=== PATIENT | male | born 1950 | race Caucasian/White ===

== ENCOUNTER → 2018-03-31 | Day surgery (SDC) | payer BC ==
[2018-03-30 13:35] LABS: BASOPHILS % 0.2 % (0.0-1.0); EOSINOPHILS # (AUTO) 0.3 (0.0-0.4); HEMATOCRIT 44.6 % (38.2-49.6); LYMPHOCYTES # (AUTO) 2.6 (1.0-3.2); LYMPHOCYTES % 28.7 % (18.0-39.1); MEAN CORPUSCULAR HEMOGLOBIN 32.8 pg (28-32); MEAN CORPUSCULAR HGB CONC 33.6 g/dL (31-35); MEAN CORPUSCULAR VOLUME 97.6 fL (81-99); MONOCYTES # (AUTO) 0.7 (0.2-0.8); NEUTROPHILS # (AUTO) 5.4 (2.1-6.9); NEUTROPHILS % 59.2 % (38.7-80.0); PLATELET COUNT 200 x10e3/uL (140-360); RED BLOOD COUNT 4.57 x10e6/uL (4.3-5.7); RED CELL DISTRIBUTION WIDTH 12.8 % (11.7-14.4)
[2018-03-30 13:55] LABS: ALANINE AMINOTRANSFERASE 33 IU/L (0-55); ALBUMIN/GLOBULIN RATIO 1.3 (0.8-2.0); ALKALINE PHOSPHATASE 50 IU/L (40-150); ANION GAP 15.1 mmol/L (8-16); BLOOD UREA NITROGEN 14 mg/dL (7-26); BUN/CREATININE RATIO 14 (6-25); CALCIUM 8.6 mg/dL (8.4-10.2); CARBON DIOXIDE 22 mmol/L (22-29); CHLORIDE 105 mmol/L (98-107); CREATININE, SERUM 1.01 mg/dL (0.72-1.25); EST GLOMERULAR FILTRATION RATE > 60 ML/MIN (60-); GLUCOSE 109 mg/dL (74-118); POTASSIUM 4.1 mmol/L (3.5-5.1); SODIUM 138 mmol/L (136-145)
[2018-03-31] VITALS (8 sets, daily range): BP systolic 128–147; BP diastolic 68–77
[~2018-03-31] VITALS: Ht 175.3 cm; Wt 98.0 kg
[~2018-03-31] MED LIST: ASPIR 8181 MG PO; ATORVASTATIN CA20 MG PO; FENTANYL CITRATE/PF 100MCG/2 ML INJ ONE; HEPARIN SOD/SOD CHLORIDE 2,000 ML ONE; IOPAMIDOL 370 MG/ML 200 ML INFUS..BTL INJ ONE; KEFLEX500 MG; LIDOCAINE HCL 2% LOCAL 20 ML VIAL ONE; LIPITOR10 MG PO; METOPROLOL TART25 MG PO; MIDAZOLAM HCL 2 MG/2 ML VIAL ONE; MULTIVITAMINS1 EAC7 PO; NAPROXEN250 MG PO; PLAVIX75 MG PO; SODIUM CHLORIDE 0.9% 1000ML 1,000 ML ONE; XARELTO20 MG PO; ZESTRIL20 MG PO
--- NOTE | 2018-03-31 16:21 | Operative Report ---
DATE OF PROCEDURE: March 31, 2018 INDICATIONS: Coronary artery disease and abnormal stress test with prior coronary bypass. PROCEDURES PERFORMED: 1. Left heart catheterization, selective coronary angiography, left ventriculography. 2. Selective cannulation of 1 arterial and 3 venous bypass conduits. 3. Deployment of right groin Mynx closer device. COMPLICATIONS: None. RECOMMENDATIONS: Medical therapy. Access obtained in the right femoral artery. A 6-Irish sheath was placed. Diagnostic coronary angiogram revealed 50% stenosis in the distal left main circumflex ostium, 50% stenosis. Obtuse marginal and circumflex [place] artery were widely patent. Left anterior descending was occluded in its proximal portion. Right coronary artery is occluded in its mid portion. Left internal mammary artery bypass to left anterior descending artery was widely patent. Saphenous vein bypass graft to 1st diagonal artery was widely patent. Saphenous vein bypass graft to obtuse marginal artery was widely patent. Saphenous vein bypass graft to right posterior descending artery is widely patent. LV ejection fraction 50%. LV end-diastolic pressure of 18. No gradient across the aortic valve pullback. Right groin repaired using Mynx closer device. Patient discharged home same day. Job#: [id number]
== END | disposition home or self-care (01) ==
LOC: CATH LAB 08:14
PROVIDERS: ATTEND Internal Medicine Interventional Cardiology
DX: I25.810 Atherosclerosis of coronary artery bypass graft(s) without angina pectoris (principal); Z95.1 Presence of aortocoronary bypass graft; R94.39 Abnormal result of other cardiovascular function study; Z01.812 Encounter for preprocedural laboratory examination
CPT/HCPCS: 36415; 80053; 85025; 93459; J2001; J2250; J7030; Q9967